=== PATIENT | male | born 1975 | race Caucasian/White ===

== ENCOUNTER 2019-09-26 | Emergency (ER) | payer OTHER ==
[2019-09-26] MEDS ORDERED: LISINOPRIL20 MG PO (23:51)
[2019-09-26] MEDS ORDERED: HYDROCHLOROT25 MG PO (23:52)
[2019-09-27] MEDS ORDERED: AMOXICILLIN500 MG PO (01:11)
[2019-09-27] MEDS ORDERED: CODEINE/GUAIFEN1 SOL PO (01:11)
== END 2019-09-27 01:32 | disposition home or self-care (01) | DRG 203 ==
DX: J40 Bronchitis, not specified as acute or chronic (principal); I10 Essential (primary) hypertension; G80.9 Cerebral palsy, unspecified